=== PATIENT | female | born 1930 | race Caucasian/White ===

== ENCOUNTER → 2016-05-01 | Outpatient (CLI) | payer MEDICARE ==
--- NOTE | 2016-05-02 10:44 | MM ---
Reason for exam: screening (asymptomatic). Last mammogram was performed 1 year ago. History: Patient is postmenopausal. 2 benign excisional biopsies of the right breast, 2002. Took estrogen for 18 years beginning at age 47. Physical Findings: A clinical breast exam by your physician is recommended on an annual basis and results should be correlated with mammographic findings. MG Screening Mammo w CAD Bilateral CC and MLO view(s) were taken. Prior study comparison: April 29, 2015, bilateral MG screening mammo w CAD. December 11, 2013, bilateral MG screening mammo w CAD. August 29, 2011, bilateral digital screening mammo w/CAD. There are scattered fibroglandular densities. Finding: There are typically benign vascular, coarse calcifications in both breasts. ASSESSMENT: Benign, BI-RAD 2 RECOMMENDATION: Routine screening mammogram of both breasts in 1 year.
== END | disposition home or self-care (01) ==
LOC: RADMAMWWP 08:47
PROVIDERS: ATTEND Internal Medicine
DX: Z12.31 Encounter for screening mammogram for malignant neoplasm of breast (principal); R92.1 Mammographic calcification found on diagnostic imaging of breast

== ENCOUNTER → 2016-11-24 | Outpatient (CLI) | payer MEDICARE ==
--- NOTE | 2016-11-24 14:10 | BD ---
EXAMINATION TYPE: MG DEXA axial skeleton. DATE OF EXAM: 11/24/2016 COMPARISON: NONE CLINICAL HISTORY: Postmenopausal screening Height: 61 Weight: 131.1 FRAX RISK QUESTIONS: Alcohol (3 or more units per day): no Family History (Parent hip fracture): no Glucocorticoids (More than 3mos): no (Ex: prednisone, prednisolone, methylprednisolone, dexamethasone, and hydrocortisone). History of Fracture in Adulthood: no Secondary Osteoporosis: 1. Type 1 Diabetes: no 2. Hyperthyroidism: no 3. Menopause before 45: no 4. Malnutrition: no 5. Chronic liver disease: no Rheumatoid Arthritis: no Current Tobacco Use: no RISK FACTORS HISTORY OF: Hip Fracture (Right/Left): no Spine Fracture: no History of Wrist Fracture: no Surgery to Spine/Hip(right/left)/Wrist (right/left): no Family History of Osteoporosis: no Active: sometimes Diet low in dairy products/other sources of calcium: yes Postmenopausal woman: age 58 Lost more than 2 inches in height since high school: yes Frequent falls: no Poor Health: no Hyperparathyroidism: no Adrenal Insufficiency: no MEDICATIONS: Thyroid Medications: snythroid How Lon years Osteoporosis Medications: evista How Lon years Additional Medications: Additional History: EXAM MEASUREMENTS: Bone mineral densitometry was performed using the [employer] System. Bone mineral density as measured about the Lumbar spine is: ----- L1-L4(G/cm2): 0.959 T Score Values are as follows: ----- L2: -1.8 ----- L3: -2.1 ----- L4: -0.8 ----- L1-L4: -1.8 Bone mineral density has: % since study of: 11.18.2010 Bone mineral density about the R hip (g/cm2): 0.775 Bone mineral density about the L hip (g/cm2): 0.693 T Score values are as follows: -----R Neck: -1.9 -----L Neck: -2.5 -----R Total: -2.0 -----L Total: -2.0 Bone mineral density hasdecreased: -10.3 % since study of: 11.18.2010 IMPRESSION: Osteopenia (T Score between -2.5 and -1) as noted by T score values with regards to both hips with fe moral neck value approaching osteoporosis There is slightly increased risk of fracture and the patient may be considered for treatment. Re-Screen 2-5 years. NOTE: T-SCORE=SD OF THE YOUNG ADULT MEAN.
== END | disposition home or self-care (01) ==
LOC: RADBDWWP 09:43
PROVIDERS: ATTEND Internal Medicine
DX: M85.88 Other specified disorders of bone density and structure, other site (principal); N95.1 Menopausal and female climacteric states
CPT/HCPCS: 77080

== ENCOUNTER → 2017-05-22 | Outpatient (CLI) | payer MEDICARE ==
--- NOTE | 2017-05-25 11:55 | MM ---
Reason for exam: screening (asymptomatic). Last mammogram was performed 1 year and 1 month ago. History: Patient is postmenopausal. 2 benign excisional biopsies of the right breast, 2002. Took estrogen for 18 years beginning at age 47. Physical Findings: A clinical breast exam by your physician is recommended on an annual basis and results should be correlated with mammographic findings. MG 3D Screening Mammo W/Cad Bilateral CC and MLO view(s) were taken. Prior study comparison: May 01, 2016, bilateral MG screening mammo w CAD. April 29, 2015, bilateral MG screening mammo w CAD. There are scattered fibroglandular densities. There is chronic nodularity in the right breast superiorly. Post surgical changes redemonstrated right breast. Scattered vascular and round calcifications. No significant changes when compared with prior studies. ASSESSMENT: Benign, BI-RAD 2 RECOMMENDATION: Routine screening mammogram of both breasts in 1 year. Manage on a clinical basis with regard to pain in the right breast. JUAN J
== END | disposition home or self-care (01) ==
LOC: RADMAMWWP 12:02
PROVIDERS: ATTEND Internal Medicine
DX: Z12.31 Encounter for screening mammogram for malignant neoplasm of breast (principal)
CPT/HCPCS: 77063; 77067

== ENCOUNTER → 2017-08-29 | Outpatient (CLI) | payer MEDICARE ==
[2017-08-29 11:04] LABS: Basophils % (A) 1 %; Eosinophils # (A) 0.2 k/uL (0-0.7); Eosinophils % (A) 2 %; HCT 45.8 % (34.0-46.0); HGB 15.1 gm/dL (11.4-16.0); Lymphocytes # (A) 1.4 k/uL (1.0-4.8); Lymphocytes % (A) 21 %; MCH 32.2 pg (25.0-35.0); MCV 97.6 fL (80.0-100.0); Mean Platelet Volume 7.2; Monocytes # (A) 0.4 k/uL (0-1.0); Monocytes % (A) 5 %; Neutrophils # (A) 4.5 k/uL (1.3-7.7); Neutrophils % (A) 69 %; Platelet Count 246 k/uL (150-450); RBC 4.69 m/uL (3.80-5.40); RDW 13.2 % (11.5-15.5); WBC 6.5 k/uL (3.8-10.6)
[2017-08-29 13:12] LABS: Erythrocyte Sedimentation Rate 10 mm/hr (0-20)
== END | disposition home or self-care (01) ==
LOC: LABWHC1 10:09
PROVIDERS: ATTEND Physical Medicine & Rehabilitation
DX: M50.121 Cervical disc disorder at C4-C5 level with radiculopathy (principal); M47.812 Spondylosis without myelopathy or radiculopathy, cervical region; G56.03 Carpal tunnel syndrome, bilateral upper limbs; M79.1 Myalgia
CPT/HCPCS: 36415; 85025; 85652; 86140

== ENCOUNTER 2017-10-17 09:06 | Emergency (ER) | payer MEDICARE ==
[2017-10-17 09:32] VITALS: BP 145/81
[2017-10-17] MEDS ORDERED: LIDOCAINE 5% PATCH TOPICAL STA (09:46)
--- NOTE | 2017-10-17 10:05 | ED ---
General Adult HPI - General Chief complaint: Back Pain/Injury Stated complaint: Back pain Time Seen by Provider: 10/17/17 09:35 Source: patient, RN notes reviewed Mode of arrival: ambulatory Limitations: no limitations - History of Present Illness Initial comments: Patient is an 87-year-old female presenting to the emergency room today with a chief complaint of right-sided lower back pain over the last 5 days. Patient states that she was pulling weeds 5 days ago. She is following day she began having increased pain to the lower back. She does admit that she went to her orthopedic doctor yesterday and was prescribed Zanaflex. She states that she has tried this yesterday with no relief of the symptoms. States pain is worse when she bends, twists. Patient states if she states still she is comfortable. Patient admits that she's experiencing pain right side lower back into the right buttocks area. Denies any other symptoms. Denies any bowel or bladder incontinence retention. Denies any saddle of seizure. Patient denies any recent fever, chills, shortness of breath, chest pain, abdominal pain, nausea or vomiting, numbness or tingling, headaches or visual changes, or any other complaints. - Related Data Home Medications Medication Instructions Recorded Confirmed ALPRAZolam [Xanax] 0.25 mg PO DAILY PRN 10/17/17 10/17/17 Aspirin EC [Ecotrin] 325 mg PO DAILY 10/17/17 10/17/17 Glucosam/Josue-Msm1/C/Win/Bosw 1 tab PO DAILY 10/17/17 10/17/17 [Glucosamine-Chondroitin Tablet] Isosorbide Mononitrate ER [Imdur] 30 mg PO DAILY 10/17/17 10/17/17 Levothyroxine Sodium [Synthroid] 125 mcg PO DAILY 10/17/17 10/17/17 Losartan Potassium [Cozaar] 25 mg PO DAILY 10/17/17 10/17/17 Magnesium Oxide [Mag-Ox] 250 mg PO DAILY 10/17/17 10/17/17 Multivit-Min/FA/Lycopen/Lutein 1 tab PO DAILY 10/17/17 10/17/17 [Centrum Silver Tablet] [place]-3 Fatty Acids/Fish Oil [Fish 1 cap PO DAILY 10/17/17 10/17/17 Oil 1,000 mg Softgel] Propylene Glycol/Peg 400/Pf 1 drop BOTH EYES Q2H PRN 10/17/17 10/17/17 [Systane 0.3-0.4% Eye Drops] tiZANidine [Zanaflex] 2 mg PO QID PRN 10/17/17 10/17/17 traMADol HCL [Ultram] 50 mg PO Q4HR PRN 10/17/17 10/17/17 Previous Rx's Medication Instructions Recorded traMADol HCl [Ultram] 50 mg PO Q6H PRN #20 tab 10/17/17 Allergies Allergy/AdvReac Type Severity Reaction Status Date / Time colchicine AdvReac Unknown Verified 10/17/17 10:18 hydrocodone AdvReac Unknown Verified 10/17/17 10:18 lorazepam [From Ativan] AdvReac Unknown Verified 10/17/17 10:18 naproxen [From Aleve] AdvReac Rash/Hives Verified 10/17/17 10:18 Review of Systems ROS Statement: Those systems with pertinent positive or pertinent negative responses have been documented in the HPI. ROS Other: All systems not noted in ROS Statement are negative. Past Medical History Past Medical History: Hypertension, Thyroid Disorder Additional Past Medical History / Comment(s): overactive bladder History of Any Multi-Drug Resistant Organisms: None Reported Past Surgical History: Appendectomy, Tubal Ligation Additional Past Surgical History / Comment(s): left knee cap sx Past Psychological History: No Psychological Hx Reported Smoking Status: Former smoker Past Alcohol Use History: Occasional Past Drug Use History: None Reported General Exam - General Exam Comments Initial Comments: General: The patient is awake and alert, in no distress, and does not appear acutely ill. Eye: Pupils are equal, round and reactive to light. Extra-ocular movements are intact. No nystagmus. There is normal conjunctiva bilaterally. No signs of icterus. Ears, nose, mouth and throat: There are moist mucous membranes and no oral lesions. Neck: The neck is supple, there is no tenderness or JVD. Cardiovascular: There is a regular rate and rhythm. No murmur, rub or gallop is appreciated. Respiratory: Lungs are clear to auscultation, respirations are non-labored, breath sounds are equal. No wheezes, stridor, rales, or rhonchi. Gastrointestinal: Soft, non-distended, non-tender abdomen without masses or organomegaly noted. There is no rebound or guarding present. No CVA tenderness. Musculoskeletal: Normal ROM. Normal appearance of the thoracic and lumbar spine with no step-off or deformity. Patient does have mild tenderness lower lumbar from L3 to S1. Patient is paravertebrally tender on the right side of the lower lumbar spine. Negative long roll maneuver. No tenderness to the right knee or hip on palpation. Sensation intact. Strength 5/5. Pulses equal bilaterally 2+. Neurological: A&O x 3. CN II-XII intact, There are no obvious motor or sensory deficits. Coordination appears grossly intact. Speech is normal. Skin: Skin is warm and dry and no rashes or lesions are noted. Psychiatric: Cooperative, appropriate mood & affect, normal judgment. Limitations: no limitations Course Vital Signs 10/17/17 10/17/17 09:27 11:05 Temperature 98.6 F 98.2 F Pulse Rate 76 68 Respiratory 18 17 Rate Blood Pressure 145/81 145/81 O2 Sat by Pulse 96 97 Oximetry Medical Decision Making - Medical Decision Making Patient reexamined at this time shows no signs of distress she is resting comfortably. Does admit to improvement of the lower back pain after Lidoderm. Patient's x-rays have been reviewed and shows no acute abnormalities. There are arthritic changes. Patient admits pain started after pulling weeds the other day. Her pain is worse with movements. She is comfortable at rest. She is advised to follow-up orthopedics. We did call their office and set up an appointment for her on October 25. Patient will be given a short prescription of tramadol that she has been taking at home for this pain as she only has 2 pills left. She'll be continued on Lidoderm patches. Advised to return if any symptoms increase or worsen. Disposition Clinical Impression: Acute low back pain Disposition: HOME SELF-CARE Condition: Good Instructions: Acute Low Back Pain (ED) Additional Instructions: Please use medication as discussed. Please follow-up with family doctor in the next 2 days of symptoms have not improved. Please follow-up with orthopedics with your scheduled appointment on October 25 as discussed. Please return to emergency room if the symptoms increase or worsen or for any other concerns. Prescriptions: traMADol HCl [Ultram] 50 mg PO Q6H PRN #20 tab PRN Reason: Pain Is patient prescribed a controlled substance at d/c from ED?: No Referrals: Jonathan Navarro MD [Primary Care Provider] - 1-2 days Time of Disposition: 11:44
--- NOTE | 2017-10-17 10:27 | XR ---
EXAMINATION TYPE: XR lumbar spine 2 or 3V DATE OF EXAM: 10/17/2017 COMPARISON: NONE HISTORY: 87-year-old female right lower back and hip pain, progressively worsening after injury 5 day s ago. TECHNIQUE: 5 views FINDINGS: Osteopenia. 5 lumbar type vertebral bodies. Angulating curvature hypertrophic facet arthropathy throu ghout with grade 1 retrolisthesis at L4-L5 and grade 1 anterolisthesis at L5-S1. Moderate degenerativ e disc disease especially at L4-L5 characterized by disc space narrowing, endplate spondylosis, and v acuum phenomenon. Mild to moderate disc space loss at L5-S1. IMPRESSION: 1. Mild scoliotic curvature. 2. No vertebral compression collapse. 3. Hypertrophic facet arthropathy with grade 1 retrolisthesis at L4-L5 and grade 1 anterolisthesis at L5-S1. 4. Moderate degenerative disc disease especially in the lower lumbar spine at L4-L5.
--- NOTE | 2017-10-17 10:28 | XR ---
EXAMINATION TYPE: AP view pelvis and 2 views right hip DATE OF EXAM: 10/17/2017 COMPARISON: NONE HISTORY: 87-year-old female progressive pain after injury FINDINGS: Degenerative changes lower lumbar spine. SI joints appear symmetric and intact. Arcuate lines of the sacrum appears smooth and continuous. Pubic symphysis is intact. There is mild axial joint space narr owing at both sides with mild marginal spurring. Osteopenia. No displaced fractures. IMPRESSION: 1. Osteopenia without displaced fractures. If patient nonweightbearing, MRI can be considered. 2. Mild bilateral hip osteoarthrosis.
[2017-10-17] MEDS ORDERED: traMADol 50 MG TAB PO STA (11:03)
[2017-10-17 11:08] VITALS: PULSE 68; RESP 17; TEMP 98.2
[2017-10-17] MEDS ORDERED: MAGNESIUM CITRATE 296 ML BOTTLE PO ONE (11:55)
== END 2017-10-17 11:55 | disposition home or self-care (01) ==
LOC: EC 09:06
DX: M54.5 Low back pain (principal); I10 Essential (primary) hypertension; E07.9 Disorder of thyroid, unspecified; Z87.891 Personal history of nicotine dependence; Z79.82 Long term (current) use of aspirin; Z79.899 Other long term (current) drug therapy; Z88.8 Allergy status to other drugs, medicaments and biological substances; Z88.5 Allergy status to narcotic agent; Z88.6 Allergy status to analgesic agent
CPT/HCPCS: 72100; 73502; 99283

== ENCOUNTER → 2018-07-09 | Outpatient (CLI) | payer MEDICARE ==
[~2018-07-09] MED LIST: DENOSUMAB 60 MG/ML 1 ML SYRINGE SQ ONE
[2018-07-09 09:43] VITALS: RESP 16
== END ==
LOC: PROCWHC3 09:08
PROVIDERS: ATTEND Internal Medicine
DX: M81.0 Age-related osteoporosis without current pathological fracture (principal)
CPT/HCPCS: 96372; J0897

== ENCOUNTER → 2019-01-13 | Outpatient (CLI) | payer MEDICARE ==
[2019-01-13 11:18] VITALS: BP 151/77; PULSE 74; RESP 15; TEMP 98.8
== END | disposition home or self-care (01) ==
LOC: PROCWHC3 10:56
PROVIDERS: ATTEND Internal Medicine
DX: M81.0 Age-related osteoporosis without current pathological fracture (principal)
CPT/HCPCS: 96372; J0897

== ENCOUNTER → 2019-10-28 | Outpatient (CLI) | payer MEDICARE ==
--- NOTE | 2019-10-29 21:16 | CT ---
EXAMINATION TYPE: CT cervical spine wo con DATE OF EXAM: 10/28/2019 COMPARISON: None HISTORY: Neck pain CT DLP: 337.9 mGycm Automated exposure control for dose reduction was used. TECHNIQUE: CT scan of the cervical spine is obtained without contrast, axial images are obtained, sa gittal and coronal reformatted images are also reviewed. FINDINGS: Cervical spine is visualized in its entirety from C1 through upper thoracic levels, demonst rates satisfactory alignment without evidence of acute fracture or dislocation. Prevertebral soft ti ssue appears within normal limits. The C1-C2 articulation is maintained with significant degenerativ e change. There is disc space narrowing at C5-C6 and C6-C7 with disc osteophyte complexes. Facet art hropathy and uncovertebral hypertrophy with varying degrees of neural foramina bony encroachment, mos t severe at C3-C4, C5-C6, and C6-C7. There is indentation of the ventral aspect of the thecal sac at C5-C6. There is mild canal stenosis at C6-C7. Calcified granuloma of the left upper lung. IMPRESSION: 1. No acute fracture or dislocation evident in the cervical spine. 2. Degenerative changes as above with varying degrees of neural foramina stenosis, and mild canal carla nosis at C6-C7.
--- NOTE | 2019-10-29 21:26 | CT ---
EXAMINATION TYPE: CT lumbar spine wo con DATE OF EXAM: 10/28/2019 10:58 AM COMPARISON: Lumbar spine radiograph 10/17/2017. HISTORY: Back pain CT DLP: 556.5 mGycm Automated exposure control for dose reduction was used. Unenhanced CT of the lumbar spine was performed. Bone and soft tissue window settings are submitted as well as coronal and sagittal reconstructions. Osteoporosis. There is redemonstrated L2 vertebral body compression deformity of approximately 60%, i ncreased from 10/17/2017 comparison, with increased retropulsion. Schmorl's node superior endplate comp ression deformity of T12. There is diffuse disc space narrowing and vacuum disc phenomenon. Diffuse facet arthropathy. L1-L2: Severe central stenosis due to retropulsion of compression deformity. Mild left neural foramin a narrowing. L2-L3: No central stenosis or foraminal encroachment. L3-L4: Moderate to severe central stenosis. Moderate bilateral neural foramina narrowing. L4-L5: Moderate to severe central stenosis. Severe bilateral neural foramina narrowing. L5-S1: Grade 1 anterolisthesis of L5 on S1. No central stenosis. Moderate to severe bilateral neural foramina narrowing. Moderate hiatal hernia. IMPRESSION: 1. Osteoporosis. 2. Progression of L2 vertebral body compression deformity versus 10/17/2017 radiograph comparison, with approximately 60% height loss and increased retropulsion contributing to severe central stenosis at L1-L2. 2. Degenerative disc disease and facet arthropathy, with moderate to severe central stenosis at L3-L4 and L4-L5, and varying degrees of neural foramina narrowing.
== END | disposition home or self-care (01) ==
LOC: RADCTMAIN 10:23
PROVIDERS: ATTEND Physical Medicine & Rehabilitation
DX: M48.02 Spinal stenosis, cervical region (principal); M48.061 Spinal stenosis, lumbar region without neurogenic claudication; M51.36 Other intervertebral disc degeneration, lumbar region; M47.22 Other spondylosis with radiculopathy, cervical region; M47.816 Spondylosis without myelopathy or radiculopathy, lumbar region; M81.0 Age-related osteoporosis without current pathological fracture; G95.29 Other cord compression; G56.03 Carpal tunnel syndrome, bilateral upper limbs; E78.5 Hyperlipidemia, unspecified; E03.9 Hypothyroidism, unspecified; I10 Essential (primary) hypertension
CPT/HCPCS: 72125; 72131

== ENCOUNTER → 2020-11-23 | Outpatient (CLI) | payer MEDICARE ==
--- NOTE | 2020-11-24 09:21 | MM ---
Reason for exam: clinical finding. Last mammogram was performed 3 years and 6 months ago. History: Patient is postmenopausal. 2 benign excisional biopsies of the right breast, 2002. Took estrogen for 18 years beginning at age 47. Physical Findings: Nurse did not find any significant physical abnormalities on exam. MG 3D Diag Mammo W/Cad TONEY Bilateral CC and MLO view(s) were taken. Prior study comparison: May 22, 2017, bilateral MG 3d screening mammo w/cad. May 01, 2016, bilateral MG screening mammo w CAD. April 29, 2015, bilateral MG screening mammo w CAD. There are scattered fibroglandular densities. Finding #1: Architectural distortion in the right breast consistent with known excision changes and right decreased in size. Finding #2: There are typically benign vascular, round calcifications in both breasts. There is no discrete abnormality in the right breast. These results were verbally communicated with the patient and result sheet given to the patient on 11/23/20. ASSESSMENT: Benign, BI-RAD 2 RECOMMENDATION: Routine screening mammogram of both breasts in 1 year.
--- NOTE | 2020-11-24 09:24 | USB ---
Reason for exam: clinical finding. History: Patient is postmenopausal. 2 benign excisional biopsies of the right breast, 2002. Took estrogen for 18 years beginning at age 47. US Breast LT Left complete breast ultrasound includes all four quadrants, the retroareolar region and axilla. Finding demonstrates no cystic or solid lesion seen. These results were verbally communicated with the patient and result sheet given to the patient on 11/23/20. ASSESSMENT: Negative, BI-RAD 1 RECOMMENDATION: Routine screening mammogram of both breasts in 1 year. Manage on a clinical basis with regard to left pain.
== END | disposition home or self-care (01) ==
LOC: RADMAMWWP 12:53
PROVIDERS: ATTEND Internal Medicine
DX: R92.1 Mammographic calcification found on diagnostic imaging of breast (principal); Z78.0 Asymptomatic menopausal state
CPT/HCPCS: 77066; 76641; G0279; 77062